=== PATIENT | female | born 1995 | race Caucasian/White ===

== ENCOUNTER 2018-11-11 19:45 | Outpatient (CLI) | payer OTHER ==
[2018-11-11 21:20] LABS: Amphetamine Screen,Urine Not Detected (NotDetected); Appearance,Urine Cloudy (Clear); Bacteria,Urine Rare /hpf; Barbiturate Screen,Urine Not Detected (NotDetected); Benzodiazepines Screen,Urine Not Detected (NotDetected); Bilirubin,Urine Negative (Negative); Blood,Urine Negative (Negative); Budding Yeast,Urine Occasional /hpf; Cocaine Screen,Urine Not Detected (NotDetected); Color,Urine Yellow; Glucose,Urine (UA) Negative (Negative); Hyaline Casts,Urine 5 /lpf (0-2); Ketones,Urine Negative (Negative); Leukocyte Esterase,Urine Small (Negative); Methadone Screen, Urine Not Detected (NotDetected); Nitrite,Urine Positive (Negative); Opiate Screen,Urine Not Detected (NotDetected); Oxycodone Screen, Urine Not Detected (NotDetected); Phencyclidine Screen,Urine Not Detected (NotDetected); Protein,Urine Trace (Negative); RBC,Urine 1 /hpf (0-5); Specific Gravity,Urine 1.021 (1.001-1.035); Squamous Epithelial Cell,Urine 10 /hpf (0-4); Tricyclic Antidepressant,Urine Not Detected (NotDetected); Urn Cannabinoid Scrn Not Detected (NotDetected); Urobilinogen,Urine <2.0 mg/dL (<2.0); WBC,Urine 20 /hpf (0-5)
[2018-11-11 21:32] LABS: Basophils % (A) 0 %; Eosinophils # (A) 0.2 k/uL (0-0.7); Eosinophils % (A) 2 %; HCT 32.1 % (34.0-46.0); HGB 10.9 gm/dL (11.4-16.0); Lymphocytes # (A) 1.9 k/uL (1.0-4.8); Lymphocytes % (A) 13 %; MCH 31.6 pg (25.0-35.0); MCHC 33.8 g/dL (31.0-37.0); MCV 93.5 fL (80.0-100.0); Mean Platelet Volume 7.7; Monocytes # (A) 0.5 k/uL (0-1.0); Monocytes % (A) 4 %; Neutrophils # (A) 11.1 k/uL (1.3-7.7); Neutrophils % (A) 79 %; Platelet Count 284 k/uL (150-450); RBC 3.43 m/uL (3.80-5.40); RDW 12.7 % (11.5-15.5); WBC 14.1 k/uL (3.8-10.6)
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
== END 2018-11-11 22:15 | disposition home or self-care (01) ==
LOC: FBPOP 19:45
PROVIDERS: ATTEND Obstetrics & Gynecology
DX: O36.8130 Decreased fetal movements, third trimester, not applicable or unspecified (principal); Z3A.00 Weeks of gestation of pregnancy not specified
CPT/HCPCS: 59025; 85025; 81001; 80306; 87086; G0463; 99213

== ENCOUNTER 2018-12-04 05:54 | Inpatient (IN) | payer OTHER ==
[2018-12-04] MEDS ORDERED: LIDOCAINE 0.5% (PF) 5 MG/ML (50 ML SDV) SQ PRN (06:13)
[2018-12-04] MEDS ORDERED: CARBOPROST TROMETHAMINE 250 MCG/ML 1 ML AMP IM PRN (06:13)
[2018-12-04] MEDS ORDERED: METHYLERGONOVINE 0.2 MG/ML 1 ML AMP IM PRN (06:13)
[2018-12-04] MEDS ORDERED: OXYTOCIN 10 UNIT/ML 1 ML VIAL IM PRN (06:13)
[2018-12-04] MEDS ORDERED: TERBUTALINE 1 MG/ML VIAL SQ PRN (06:13)
[2018-12-04] MEDS ORDERED: BUTORPHANOL 1 MG/ML 1 ML VIAL IV PRN (06:14)
[2018-12-04 06:26] VITALS: BMI 38.8
[2018-12-04 07:36] LABS: Amphetamine Screen,Urine Not Detected (NotDetected); Barbiturate Screen,Urine Not Detected (NotDetected); Benzodiazepines Screen,Urine Not Detected (NotDetected); Cocaine Screen,Urine Not Detected (NotDetected); Methadone Screen, Urine Not Detected (NotDetected); Opiate Screen,Urine Not Detected (NotDetected); Oxycodone Screen, Urine Not Detected (NotDetected); Phencyclidine Screen,Urine Not Detected (NotDetected); Tricyclic Antidepressant,Urine Not Detected (NotDetected); Urn Cannabinoid Scrn Not Detected (NotDetected)
[2018-12-04 07:57] LABS: Basophils # (A) 0.1 k/uL (0-0.2); Basophils % (A) 0 %; Eosinophils # (A) 0.5 k/uL (0-0.7); Eosinophils % (A) 3 %; HCT 34.5 % (34.0-46.0); HGB 11.2 gm/dL (11.4-16.0); Lymphocytes % (A) 14 %; MCH 30.9 pg (25.0-35.0); MCHC 32.6 g/dL (31.0-37.0); Mean Platelet Volume 8.7; Monocytes # (A) 0.6 k/uL (0-1.0); Monocytes % (A) 4 %; Neutrophils # (A) 11.1 k/uL (1.3-7.7); Neutrophils % (A) 77 %; Platelet Count 245 k/uL (150-450); RBC 3.64 m/uL (3.80-5.40); WBC 14.4 k/uL (3.8-10.6)
[2018-12-04] MEDS: LACTATED RINGERS 1,000 ML IV SCH (08:15)
[2018-12-04] MEDS: OXYTOCIN 30 UNITS/500 ML NS 30 UNIT in SALINE 1 500ML.BAG IV SCH (08:16)
--- NOTE | 2018-12-04 08:30 | P.HPOB ---
History of Present Illness H&P Date: 12/04/18 Chief Complaint: IUP @ 3808 6/7 weeks, labor, hep c This is a 23-year-old 1 para 0 at 38-3/7 weeks with an estimated due date of 12/23/18 based on last menstrual period consistent with 20 week ultrasound. Patient does have a history of substance abuse with a negative UDS in October. She is a smoker. Patient is known positive for hep C untreated. She was a late transfer of care into our office at 27 weeks. In addition patient was noted to have a amniotic fluid index on the upper limits of normal at 24 cm and was undergoing weekly NSTs. Patient has a blood type of A+, rubella immune, RPR nonreactive, hepatitis B surface antigen negative, HIV negative as states above hepatitis C was positive per patient. We'll draw viral load on admission today. Patient a positive urine drug screen on sleep 08/06/18 for THC, negative on 10/07/18. She did pass her one-hour Glucola on 09/22/18. Group beta strep negative on 11/10/18. Review of Systems Constitutional: Denies chills, Denies fatigue, Denies fever Ears, nose, mouth and throat: Denies headache Cardiovascular: Reports leg edema Respiratory: Denies dyspnea Gastrointestinal: Denies nausea, Denies vomiting Genitourinary: Reports Past Medical History Past Medical History: Asthma Additional Past Medical History / Comment(s): Hepatitis C diagnosed 3 years ago, untreated History of Any Multi-Drug Resistant Organisms: None Reported Past Surgical History: No Surgical Hx Reported Past Anesthesia/Blood Transfusion Reactions: No Reported Reaction Past Psychological History: No Psychological Hx Reported Smoking Status: Current every day smoker Past Alcohol Use History: None Reported Past Drug Use History: Cocaine, Heroin, Marijuana - Past Family History Mother Family Medical History: No Reported History Medications and Allergies Home Medications Medication Instructions Recorded Confirmed Type Pnv No.95/Ferrous Fum/Folic AC 1 each PO DAILY 12/04/18 12/04/18 History [ Multivitamin Tablet] Allergies Allergy/AdvReac Type Severity Reaction Status Date / Time No Known Allergies Allergy Verified 12/04/18 06:01 Exam Osteopathic Statement: *. No significant issues noted on an osteopathic structural exam other than those noted in the History and Physical/Consult. Vital Signs Temp Pulse Resp BP 12/04/18 06:21 96.9 F L 107 H 16 111/53 12/04/18 06:05 96.9 F L 107 H 16 111/53 Intake and Output 12/03/18 12/04/18 12/04/18 22:59 06:59 14:59 Other: Weight 96.4 kg In general this is a well-nourished well-developed female in obvious painful distress, her breathing is noted to be nonlabored her heart has a regular rate and rhythm her abdomen is noted to be gravid, her heart tones were noted to be category 2 but not tracing well at the time variability was moderate. Cervical exam was just done by RN and she was 2-3/70/-2 and a scalp electrode had just been placed. Patient is requesting epidural at this time. Results Result Diagrams: 12/04/18 06:49 Abnormal Lab Results - Last 24 Hours (Table) 12/04/18 Range/Units 06:49 WBC 14.4 H (3.8-10.6) k/uL RBC 3.64 L (3.80-5.40) m/uL Hgb 11.2 L (11.4-16.0) gm/dL Neutrophils # 11.1 H (1.3-7.7) k/uL Assessment and Plan (1) Term Current Visit: Yes Status: Acute Code(s): Z34.90 - ENCNTR FOR SUPRVSN OF NORMAL , UNSP, UNSP TRIMESTER SNOMED Code(s): 09535881 (2) Hepatitis C Current Visit: Yes Status: Acute Code(s): B19.20 - UNSPECIFIED VIRAL HEPATITIS C WITHOUT HEPATIC COMA SNOMED Code(s): 01836171 (3) SROM (spontaneous rupture of membranes) Current Visit: Yes Status: Acute Code(s): LUE4061 - SNOMED Code(s): 025844132 Plan: Patient is admitted to labor and delivery, epidural is offered and anesthesia is notified. Anticipate spontaneous vaginal delivery
[2018-12-04] MEDS ORDERED: ROPIVACAINE 5MG/ML 20ML VIAL ONE (08:39)
[2018-12-04] MEDS ORDERED: fentaNYL (PF) 50 MCG/ML 5 ML AMP ONE (08:39)
[2018-12-04] MEDS ORDERED: SODIUM CHLORIDE 0.9% 100 ML BAG ONE (08:39)
[2018-12-04] MEDS ORDERED: CITRIC ACID-SODIUM CITRATE 15 ML CUP PO ONE (09:43)
[2018-12-04] MEDS ORDERED: ceFAZolin IN SWFI 2 GM/20 ML SYRINGE IVP ONE (09:43)
[2018-12-04] MEDS ORDERED: MORPHINE SULFATE (PF) 0.3 MG/0.3 ML SYR ONE (09:59)
[2018-12-04] MEDS ORDERED: OXYTOCIN 10 UNIT/ML 1 ML VIAL ONE (09:59)
[2018-12-04] MEDS ORDERED: ceFAZolin 1,000 MG VIAL ONE (09:59)
[2018-12-04] MEDS ORDERED: ONDANSETRON 4 MG/2 ML VIAL ONE (09:59)
[2018-12-04] MEDS ORDERED: METOCLOPRAMIDE 5 MG/ML 2 ML VIAL IVP PRN (10:48)
[2018-12-04] MEDS ORDERED: ACETAMINOPHEN TAB 325 MG TAB PO PRN (10:48)
[2018-12-04] MEDS ORDERED: NALOXONE 0.4 MG/ML 1 ML VIAL IV PRN (10:48)
[2018-12-04] MEDS ORDERED: ZOLPIDEM 5 MG TAB PO PRN (10:48)
[2018-12-04] MEDS ORDERED: diphenhydrAMINE 50 MG/ML 1 ML VIAL IVP PRN ×2 (10:48)
[2018-12-04] MEDS ORDERED: diphenhydrAMINE 25 MG CAP PO PRN (10:48)
[2018-12-04] MEDS ORDERED: diphenhydrAMINE 50 MG CAP PO PRN (10:48)
[2018-12-04] MEDS ORDERED: ONDANSETRON 4 MG/2 ML VIAL IVP PRN (10:48)
--- NOTE | 2018-12-04 10:53 | P.OP ---
Date of Procedure: 12/04/18 Preoperative Diagnosis: IUP at 38 and 5/sevenths weeks, nonreassuring heart tones remote from delivery Postoperative Diagnosis: Same Procedure(s) Performed: Primary low transverse section Anesthesia: epidural Surgeon: Sandy Clarke Measurement And Verification Engineer #1: Loc Minor Estimated Blood Loss (ml): 600 IV fluids (ml): 1,000 Urine output (ml): 200 Pathology: other (Placenta) Condition: stable Disposition: PACU Indications for Procedure: Nonreassuring heart tones remote from delivery, patient was admitted to labor and delivery with spontaneous rupture of membranes. Soon after admission patient was noted have a spontaneous deceleration with recovery back to baseline. Patient again had another spontaneous deceleration down to the 60s for 1 minute therefore the decision was made to take the patient back for an urgent primary low transverse section. Prior to heart tones were noted to be reassuring with moderate variability, given her cervix and remoteness from delivery was performed. Operative Findings: Normal uterus tubes and ovaries were appreciated male infant delivered at 1017, weight of 7 lbs. 5 oz. with Apgars of 8 and 9 at one and 5 minutes respectively. Description of Procedure: The patient was prepped and draped in the usual fashion after epidural anesthesia was found to be adequate. A Pfannenstiel incision was made and extended of the abdominal cavity without difficulty. The bladder peritoneum was elevated and incised and reflected distally. A 2 cm incision was made in the transverse plane of the lower uterine segment to enter the uterus at which time clear fluid was noted. The incision was extended in both directions using the bandage scissors. The head was encountered within the field and delivered up and through the incision where the nose and mouth were thoroughly suctioned. Remainder of the was delivered onto the surgical field where the cord was doubly clamped, cut, and the infant was passed for resuscitative measures with weight and Apgars as noted above. A segment of cord was then doubly clamped, cut, and set aside should cord gases become necessary. The placenta was delivered manually, intact, and was grossly normal with a grossly normal three- vessel cord. The uterus was exteriorized and the interior cavity of the uterus swept of any remaining placental and membranous fragments with a laparotomy sponge. The margins of the incision were grasped with Allis clamps and the incision closed in 2 layers. First layer was a running locking layer of 0 Vicryl from margin to margin followed by a second layer of imbricating 0 Vicryl from margin to margin. Any small points of bleeding were then made hemostatic with the Bovie. Once hemostasis was achieved, the posterior cul-de-sac was suctioned with a guard and the uterine and ovarian findings are as noted above. The uterus was replaced within the abdominal cavity and the gutters swept of any remaining blood fluid or clot. The incision was again reexamined and hemostasis was noted to be excellent. Any small point of bleeding were made hemostatic with the Bovie. Once hemostasis was achieved the parietal peritoneum was loosely reapproximated. The layer of muscles were examined and made hemostatic with the Bovie. Attention was then turned to the fascia which was closed with 2 running stitches of 0 Vicryl proceeding from the lateral margins to the midpoint. The subcutaneous tissues were irrigated, made hemostatic with the Bovie, and reapproximated with a running stitch of 30 Vicryl. The skin was reapproximated with 4-0 Vicryl. Estimated blood loss for the case was approximately 600 mL. All sponge instrument and needle counts are correct. There were no complications. The patient tolerated the procedure well and proceeded to the recovery room in stable condition. Both mother and infant are resting comfortably in recovery.
[2018-12-04] MEDS ORDERED: OXYTOCIN 20 UNITS/1000 ML NS 1,000 ML IV SCH (11:00)
[2018-12-04] MEDS ORDERED: ACETAMINOPHEN IV (For NPO) 1,000 MG in EMPTY BAG 1 BAG IVPB ONE (11:30)
[2018-12-04] MEDS ORDERED: IBUPROFEN IV 800 MG in SODIUM CHLORIDE 0.9% 250 ML IV ONE (19:03)
[2018-12-04] MEDS: HYDROcodone/APAP 5-325MG 1 EACH TAB PO PRN (22:39)
[2018-12-05] MEDS ORDERED: ALBUTEROL NEBULIZED 2.5 MG/3 ML INHALATION PRN (00:13)
[2018-12-05] MEDS: IBUPROFEN 600 MG TAB PO PRN ×3 (01:35→14:10)
[2018-12-05] MEDS: HYDROcodone/APAP 5-325MG 1 EACH TAB PO PRN ×3 (04:38→20:04)
--- NOTE | 2018-12-05 06:54 | P.PN ---
Progress Note - Text Progress Note Date: 12/05/18 Pt w/o complaints. Ambulating w/o complaints of paresthesia or weakness. Denies headache. Pruritis controlled. Pain controlled. Epidural site clean and dry. A/P POD#1 s/p with epidural duramorph - doing well
[2018-12-05 07:16] LABS: Basophils % (A) 0 %; Eosinophils # (A) 0.4 k/uL (0-0.7); Eosinophils % (A) 4 %; HCT 27.8 % (34.0-46.0); Lymphocytes # (A) 1.6 k/uL (1.0-4.8); Lymphocytes % (A) 15 %; MCH 31.7 pg (25.0-35.0); MCHC 33.8 g/dL (31.0-37.0); MCV 93.8 fL (80.0-100.0); Monocytes # (A) 0.4 k/uL (0-1.0); Monocytes % (A) 3 %; Neutrophils # (A) 8.2 k/uL (1.3-7.7); Neutrophils % (A) 76 %; Platelet Count 191 k/uL (150-450); RBC 2.97 m/uL (3.80-5.40); WBC 10.8 k/uL (3.8-10.6)
[2018-12-05 07:27] LABS: HGB 9.4 gm/dL (11.4-16.0)
[2018-12-05] MEDS: SENNOSIDES-DOCUSATE SODIUM 1 EACH TAB PO SCH ×3 (08:16→20:04)
--- NOTE | 2018-12-05 10:47 | P.PNOBGPC ---
Subjective - Subjective Principal diagnosis: POD 1 LTCS NRFHTs. Interval history: Patient did well overnight. We are working on pain medication currently as she is concerned with her prior history of drug abuse and taking Alexandria's. Patient is ambulating and voiding without difficulty. She is tolerating a regular diet without nausea or vomiting, and states her lochia is minimal. She is taking Alexandria sporadically for pain along with Motrin. Patient reports: Reports appetite normal, Reports voiding normally, Reports pain poorly controlled (We are encouraging ambulation and consistent Motrin use), Reports ambulating normally : nursing well Objective - Vital Signs Latest vital signs: Vital Signs Temp Pulse Pulse Resp BP Pulse Ox 12/05/18 08:00 98.8 F 91 16 121/73 98 12/05/18 03:38 98.2 F 90 16 130/74 12/05/18 00:58 92 12/05/18 00:48 96 12/05/18 00:00 98.5 F 101 H 20 130/80 12/04/18 20:00 98.3 F 92 16 137/71 12/04/18 15:12 97.7 F 87 16 124/63 12/04/18 13:15 97.7 F 89 15 119/59 12/04/18 12:45 88 15 134/74 12/04/18 12:15 76 18 125/73 98 12/04/18 12:00 102 H 18 142/73 99 12/04/18 11:45 89 18 131/88 98 12/04/18 11:30 86 18 131/81 98 12/04/18 11:15 97.8 F 87 18 114/63 99 Intake and Output 12/04/18 12/05/18 12/05/18 22:59 06:59 14:59 Output Total 1000 Balance -1000 Output: Urine 1000 Uretheral (Arteaga) 600 Other: Voiding Method Indwelling Catheter # Voids 1 - Exam Extremities: Present: normal, edema Abdomen: Present: normal appearance, soft Incision: Present: normal, dry, intact Uterus: Present: normal, firm - Labs Labs: Abnormal Lab Results - Last 24 Hours (Table) 12/05/18 Range/Units 06:44 WBC 10.8 H (3.8-10.6) k/uL RBC 2.97 L (3.80-5.40) m/uL Hgb 9.4 L D (11.4-16.0) gm/dL Hct 27.8 L (34.0-46.0) % Neutrophils # 8.2 H (1.3-7.7) k/uL Assessment and Plan (1) Term Current Visit: Yes Status: Acute Code(s): Z34.90 - ENCNTR FOR SUPRVSN OF NORMAL , UNSP, UNSP TRIMESTER SNOMED Code(s): 60617902 (2) Hepatitis C Current Visit: Yes Status: Acute Code(s): B19.20 - UNSPECIFIED VIRAL HEPATITIS C WITHOUT HEPATIC COMA SNOMED Code(s): 96654153 (3) SROM (spontaneous rupture of membranes) Current Visit: Yes Status: Acute Code(s): XWS5762 - SNOMED Code(s): 810620848 Plan: I did encourage patient to increase ambulation throughout the day. Patient is encouraged to use Alexandria as needed along with her ibuprofen. Patient states understanding of the plan and all questions are answered. We will continue with routine postoperative care.
[2018-12-05] MEDS: PRENATAL VIT-IRON-FOLIC ACID 1 EACH CAP PO SCH (15:43)
[2018-12-05] MEDS: LACTATED RINGERS 1,000 ML IV SCH ×4 (20:02→21:28)
[2018-12-05] MEDS: OXYTOCIN 30 UNITS/500 ML NS 30 UNIT in SALINE 1 500ML.BAG IV SCH (21:29)
[2018-12-05 22:12] VITALS: RESP 18
[2018-12-06] MEDS: LACTATED RINGERS 1,000 ML IV SCH (00:26)
[2018-12-06] MEDS: IBUPROFEN 600 MG TAB PO PRN ×2 (00:42→06:38)
--- NOTE | 2018-12-06 08:16 | P.DS ---
Providers Date of admission: 12/04/18 06:10 Expected date of discharge: 12/06/18 Attending physician: Madelyn Saleh Primary care physician: Stated None Hospital Course: This is a 23-year-old white female 1 para 0 EDC 12/13/2018 at 38-5/7 weeks' gestation. Patient presented to our practice at approximate 27 weeks gestation. Her history was significant for positive hepatitis C, untreated. She presented to labor and delivery in early spontaneous labor. Initially all signs were reassuring. Group B strep cultures negative. Rubella status immune. Patient is on Suboxone for history of heroin use. Drug screen in the was negative. Please see dictated history and physical for details. In the early stages of labor heart rate was noted to be nonreassuring, with repetitive late D cells area decision was made to proceed with section. She went on to deliver a liveborn male with scores of 8 and 9 at one and 5 minutes respectively. He weighed 7 lbs. 5 oz. or 3320 g. The operative case was essentially unremarkable, please see dictated operative note for details. No unusual intraoperative findings were noted. This morning the patient is doing well. She is voiding, ambulating and passing flatus without difficulty. Vital signs are stable and she is afebrile. Fundus is firm and in the midline, symmetric and 18 week size. Extremities are negative for edema. Incision is clean and dry, intact, Steri-Strips applied. Patient's breasts are not engorged. [place] is doing well. Circumcision has been performed this morning. I have ordered a social worker masters consult this morning. Pending their evaluation, patient will be discharged home later today. She is judged to be in good condition for discharge home. She will use [id number] Advil or Aleve, or ibuprofen as needed for pain. I've asked her to call the office with any fevers shakes or chills, foul smelling or copious lochia, with the passage of large blood clots, with any pain not alleviated by [id number] products, or indeed with any difficulties or concerns. No intercourse, no heavy lifting, no driving for 2 weeks. We have briefly discussed options for contraception and we will review this more thoroughly in the office. Patient Condition at Discharge: Good Plan - Discharge Summary Discharge Rx Participant: No New Discharge Prescriptions: No Action Pnv No.95/Ferrous Fum/Folic AC [ Multivitamin Tablet] 1 each PO DAILY Discharge Medication List Pnv No.95/Ferrous Fum/Folic AC [ Multivitamin Tablet] 1 each PO DAILY 12/04/18 [History] Follow up Appointment(s)/Referral(s): Madelyn Saleh MD [STAFF PHYSICIAN] - 2 Weeks Discharge Disposition: HOME SELF-CARE
[2018-12-06 08:24] VITALS: BP 136/83; PULSE 94; TEMP 98
[2018-12-06] MEDS: SENNOSIDES-DOCUSATE SODIUM 1 EACH TAB PO SCH (12:03)
[2018-12-06] MEDS: PRENATAL VIT-IRON-FOLIC ACID 1 EACH CAP PO SCH (12:03)
[2018-12-06 13:42] LABS: LOG HCV IU/mL 6.84 (<1.08)
== END 2018-12-06 13:30 | disposition home or self-care (01) | DRG 787 ==
LOC: FBPOP 05:54 → 4FBP 06:10
PROVIDERS: ADMIT Obstetrics & Gynecology Obstetrics; ATTEND Obstetrics & Gynecology
PROC: 00HU33Z Insertion of Infusion Device into Spinal Canal, Percutaneous Approach (ICD-10-PCS; 2018-12-04)
PROC: 3E0R3BZ Introduction of Anesthetic Agent into Spinal Canal, Percutaneous Approach (ICD-10-PCS; 2018-12-04)
PROC: 10D00Z1 Extraction of Products of Conception, Low, Open Approach (ICD-10-PCS; principal; 2018-12-04 10:10)
DX: O98.42 Viral hepatitis complicating childbirth (principal); O99.323 Drug use complicating pregnancy, third trimester; B19.20 Unspecified viral hepatitis C without hepatic coma; O76 Abnormality in fetal heart rate and rhythm complicating labor and delivery; O99.334 Smoking (tobacco) complicating childbirth; F17.200 Nicotine dependence, unspecified, uncomplicated; O99.52 Diseases of the respiratory system complicating childbirth; J45.909 Unspecified asthma, uncomplicated; L29.9 Pruritus, unspecified; F11.90 Opioid use, unspecified, uncomplicated; Z37.0 Single live birth; Z3A.38 38 weeks gestation of pregnancy; Z79.899 Other long term (current) drug therapy
CPT/HCPCS: 59025; 80306; 84112; 85025; 86850; 86900; 86901; 87522; 88307; 94640; 99213

== ENCOUNTER 2019-02-28 10:09 | Emergency (ER) | payer OTHER ==
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
[2019-02-28 11:15] LABS: Basophils # (A) 0.1 k/uL (0-0.2); Basophils % (A) 1 %; Eosinophils # (A) 0.1 k/uL (0-0.7); Eosinophils % (A) 1 %; HCT 44.6 % (34.0-46.0); HGB 14.6 gm/dL (11.4-16.0); Lymphocytes # (A) 1.6 k/uL (1.0-4.8); Lymphocytes % (A) 17 %; MCH 30.4 pg (25.0-35.0); MCHC 32.8 g/dL (31.0-37.0); MCV 92.8 fL (80.0-100.0); Mean Platelet Volume 7.5; Monocytes # (A) 0.3 k/uL (0-1.0); Monocytes % (A) 4 %; Neutrophils # (A) 7.2 k/uL (1.3-7.7); Neutrophils % (A) 76 %; Platelet Count 140 k/uL (150-450); RDW 12.9 % (11.5-15.5); WBC 9.5 k/uL (3.8-10.6)
[2019-02-28] MEDS ORDERED: MORPHINE SULFATE 4 MG/ML SYRINGE IVP STA (11:26)
[2019-02-28 11:27] LABS: ALT 150 U/L (9-52); AST 111 U/L (14-36); African American GFR (CKD) >90 (>60 ml/min/1.73 sqM); Albumin 4.2 g/dL (3.5-5.0); Alcohol <10 mg/dL; Alkaline Phosphatase 79 U/L (38-126); Anion Gap 10 mmol/L; Blood Urea Nitrogen 14 mg/dL (7-17); Calcium 8.9 mg/dL (8.4-10.2); Carbon Dioxide 18 mmol/L (22-30); Chloride 113 mmol/L (98-107); Glucose 80 mg/dL (74-99); Potassium 4.1 mmol/L (3.5-5.1); Sodium 141 mmol/L (137-145); Total Protein 7.8 g/dL (6.3-8.2)
[2019-02-28 11:41] LABS: Appearance,Urine Clear (Clear); Bilirubin,Urine Negative (Negative); Blood,Urine Negative (Negative); Color,Urine Yellow; Glucose,Urine (UA) Negative (Negative); Ketones,Urine 1+ (Negative); Leukocyte Esterase,Urine Negative (Negative); Nitrite,Urine Negative (Negative); Protein,Urine Trace (Negative); Urobilinogen,Urine <2.0 mg/dL (<2.0)
[2019-02-28] MEDS ORDERED: ACET/COD 300 MG/30 MG STARTER PACK 6 TAB BTL PO STA (11:49)
[2019-02-28 11:50] LABS: Amylase 51 U/L (30-110)
[2019-02-28 11:51] LABS: Amphetamine Screen,Urine Not Detected (NotDetected); Barbiturate Screen,Urine Not Detected (NotDetected); Benzodiazepines Screen,Urine Not Detected (NotDetected); Cocaine Screen,Urine Not Detected (NotDetected); Methadone Screen, Urine Not Detected (NotDetected); Opiate Screen,Urine Detected (NotDetected); Oxycodone Screen, Urine Not Detected (NotDetected); Phencyclidine Screen,Urine Not Detected (NotDetected); Tricyclic Antidepressant,Urine Not Detected (NotDetected); Urn Cannabinoid Scrn Detected (NotDetected)
[2019-02-28 12:00] LABS: Creatine Kinase 79 U/L (30-135)
[2019-02-28 12:12] LABS: Creatine Kinase MB 0.6 ng/mL (0.0-2.4); Troponin I <0.012 ng/mL (0.000-0.034)
[2019-02-28 12:41] LABS: Prothrombin Time 10.3 sec (9.0-12.0)
[2019-02-28 12:50] LABS: Specific Gravity,Urine >1.050 (1.001-1.035)
[2019-02-28 12:50] LABS: Partial Thromboplastin Time 18.7 sec (22.0-30.0)
[2019-02-28 12:51] VITALS: BP 139/89; PULSE 77; RESP 16; TEMP 97.9
== END 2019-02-28 12:34 | disposition home or self-care (01) ==
LOC: EC 10:09
DX: S82.52XA Displaced fracture of medial malleolus of left tibia, initial encounter for closed fracture (principal); J45.909 Unspecified asthma, uncomplicated; F17.200 Nicotine dependence, unspecified, uncomplicated; Z79.899 Other long term (current) drug therapy; V43.53XA Car driver injured in collision with pick-up truck in traffic accident, initial encounter; Y92.410 Unspecified street and highway as the place of occurrence of the external cause
CPT/HCPCS: 36415; 86900; 86901; 80053; 82150; 82550; 82553; 83605; 83690; 84484; 85025; 85610; 85730; 86850; 81003; 81025; 80306; 80320; 72170; 73590; 73610; 71045; 72125; 70450; 71260; 74177; 99285; 29515; 96374; J2270; Q9967

== ENCOUNTER → 2019-03-08 | Outpatient (CLI) | payer OTHER ==
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
== END | disposition home or self-care (01) ==
LOC: RADCTMAIN 15:13
PROVIDERS: ATTEND Orthopaedic Surgery
DX: S82.52XP Displaced fracture of medial malleolus of left tibia, subsequent encounter for closed fracture with malunion (principal); F17.210 Nicotine dependence, cigarettes, uncomplicated

== ENCOUNTER → 2020-09-24 | Outpatient (CLI) | payer OTHER ==
[2020-09-25 01:31] LABS: African American GFR (CKD) 80.8 (60.0-200.0); Albumin 5.1 g/dL (3.80-4.90); Albumin/Globulin Ratio 1.7 (1.60-3.17); BUN/Creat Ratio 14.55 Ratio (12.00-20.00); Calcium 10.5 mg/dL (8.7-10.3); Non-African American GFR(CKD) 69.7 (60.0-200.0); Potassium 5.8 mmol/L (3.5-5.5); Total Bilirubin 0.7 mg/dL (0.2-1.2); Total Protein 8.1 g/dL (6.2-8.2)
== END | disposition home or self-care (01) ==
LOC: LABWHC1 10:11
PROVIDERS: ATTEND Family Medicine
DX: F11.20 Opioid dependence, uncomplicated (principal)
CPT/HCPCS: 36415; 80053